=== PATIENT | male | born 1960 | race Asian ===

== ENCOUNTER 2021-10-10 08:27 | Outpatient (CLI) | payer BC ==
[2021-10-10 18:43] LABS: SARS-CoV-2 PCR by NAA Not Detected (NotDetected)
== END 2021-10-10 08:28 | disposition home or self-care (01) ==
LOC: CSHLAB 08:27
PROVIDERS: ATTEND Internal Medicine Gastroenterology
DX: Z20.822 Contact with and (suspected) exposure to COVID-19 (principal); Z12.11 Encounter for screening for malignant neoplasm of colon
CPT/HCPCS: U0003; U0005

== ENCOUNTER 2021-10-15 10:29 | Day surgery (SDC) | payer BC ==
[2021-10-09 14:56] VITALS: BMI 27.8
[~2021-10-15 10:29] MED LIST: Lidocaine 1% MPF 2 ML VIAL ONE
[2021-10-15] MEDS ORDERED: PROPOFOL 20 ML ONE ×2 (12:09→12:48)
== END 2021-10-15 13:40 | disposition home or self-care (01) ==
LOC: CSHSDC 10:29
PROVIDERS: ATTEND Internal Medicine Gastroenterology
PROC: 0DJD8ZZ Inspection of Lower Intestinal Tract, Via Natural or Artificial Opening Endoscopic (ICD-10-PCS; principal; 2021-10-15)
DX: Z12.11 Encounter for screening for malignant neoplasm of colon (principal); K64.8 Other hemorrhoids; E78.5 Hyperlipidemia, unspecified; I10 Essential (primary) hypertension
CPT/HCPCS: J2704